=== PATIENT | female | born 1960 | race Caucasian/White ===

== ENCOUNTER 2021-11-19 10:06 | Outpatient (CLI) | payer BC ==
[~2021-11-19] VITALS: Ht 172.7 cm; Wt 108.9 kg
[2021-11-19] MEDS ORDERED: albuterol 2.5 MG/3 ML nebule NEB PRN (10:45)
== END 2021-11-19 23:59 | disposition home or self-care (01) ==
LOC: RT 10:06
PROVIDERS: ATTEND Nurse Practitioner Family
DX: J45.998 Other asthma (principal)
CPT/HCPCS: 94010; 94618